=== PATIENT | female | born 1985 | race Caucasian/White ===

== ENCOUNTER → 2024-04-27 11:13 | Outpatient (REF) | payer OTHER, SELFPAY ==
--- NOTE | 2024-04-27 11:27 | ECG_ITS ---
Test Reason : [facility] [employer]I[facility] THERAPHY Blood Pressure : */* mmHG Vent. Rate : 69 BPM Atrial Rate : 69 BPM P-R Int : 168 ms QRS Dur : 82 ms QT Int : 416 ms P-R-T Axes : 10 40 36 degrees QTcB Int : 445 ms Normal sinus rhythm Normal ECG No previous ECGs available Referred By: Cassy Hernandez Electronically Signed By: HELLEN TRINH
== END ==
LOC: HO.CARD 11:13
PROVIDERS: PCP Internal Medicine; Visit Provider Registered Nurse
DX: Z79.899 Other long term (current) drug therapy (principal)
CPT/HCPCS: 93005

== ENCOUNTER → 2024-04-27 11:27 | Outpatient (BNV) | payer OTHER, SELFPAY | PROVIDERS: PCP Internal Medicine; Visit Provider Internal Medicine | DX: Z79.899 Other long term (current) drug therapy (principal) | CPT/HCPCS: 93010 ==